=== PATIENT | female | born 1985 | race Two or more races ===

== ENCOUNTER → 2017-08-24 | Emergency (ER) | payer OTHER ==
[~2017-08-24] VITALS: Ht 162.6 cm; Wt 99.8 kg
[~2017-08-24] MED LIST: AMPICILLIN TRI500 MG PO; CEFADROXIL500 MG PO; CHEST CONG100 MG/51 PO; CIPRO500 MG PO; CLARITIN-D1 TAB.SR1 PO; INTESTINEX1 CA1 PO; INTESTINEX1 CAP PO; LEVSIN/SL0.125 MG SL; OSEL75CA PO; PEPCID20 MG PO; PEPCID40 MG PO; PHENERGAN25 MG PO; PROTONIX40 MG PO; SINGULAIR 10MG10 MG PO; SYMBICORT 16010.2 GM IH; TUSSI PRES-B L120 M1 PO; ZITHROMAX TRI-500 MG PO; ZITHROMAX500 MG PO; ZOFRAN4 MG PO; ZYNCOF 20-400120 ML PO
== END | disposition home or self-care (01) ==
LOC: ER 19:15
DX: J06.9 Acute upper respiratory infection, unspecified (principal); J00 Acute nasopharyngitis [common cold]; M54.89 Other dorsalgia

== ENCOUNTER 2018-01-25 01:10 | Emergency (ER) | payer OTHER ==
[~2018-01-25] VITALS: Ht 162.6 cm; Wt 99.8 kg
[2018-01-25] MEDS ORDERED: KETO10TA2 PO (04:55)
[2018-01-25] MEDS ORDERED: AMOX1TAB5 PO (04:55)
[2018-01-25] MEDS ORDERED: MUPIROCIN22 GM TOP (04:55)
== END 2018-01-25 05:09 | disposition home or self-care (01) ==
LOC: ER 01:10
DX: L72.3 Sebaceous cyst (principal)

== ENCOUNTER 2018-02-17 00:23 | Emergency (ER) | payer OTHER ==
[~2018-02-17] VITALS: Ht 162.6 cm; Wt 99.8 kg
[~2018-02-17 00:23] MED LIST changes: +AMOX1TAB5 PO; +KETO10TA2 PO; +MUPIROCIN22 GM TOP
[2018-02-17] MEDS ORDERED: CLINDAMYCIN HC300 MG PO (04:15)
[2018-02-17] MEDS ORDERED: KETO10TA2 PO (04:15)
[2018-02-17] MEDS ORDERED: INTESTINEX680 M1 PO (04:15)
== END 2018-02-17 04:39 | disposition home or self-care (01) ==
LOC: ER 00:23
DX: L72.3 Sebaceous cyst (principal)

== ENCOUNTER 2018-06-21 23:50 | Emergency (ER) | payer OTHER ==
[~2018-06-21] VITALS: Ht 162.6 cm; Wt 99.8 kg
[~2018-06-21 23:50] MED LIST changes: +CLINDAMYCIN HC300 MG PO; +INTESTINEX680 M1 PO
[2018-06-22] MEDS ORDERED: ORPHENADRINE C100 MG PO (03:33)
[2018-06-22] MEDS ORDERED: KETO10TA2 PO (03:33)
== END 2018-06-22 04:06 ==
LOC: ER 23:50
DX: G44.209 Tension-type headache, unspecified, not intractable (principal); M62.838 Other muscle spasm

== ENCOUNTER 2024-11-25 01:55 | Emergency (ER) | payer OTHER ==
[~2024-11-25] VITALS: Ht 162.6 cm; Wt 81.6 kg
[~2024-11-25 01:55] MED LIST changes: +ORPHENADRINE C100 MG PO
[2024-11-25] MEDS ORDERED: CIPROFLOXACIN IN 5 % DEXTROSE 400 MG/200 ML PIGGYBAG IV STA (04:00)
[2024-11-25] MEDS ORDERED: KETOROLAC TROMETHAMINE 30 MG VIAL IV STA (04:00)
[2024-11-25] MEDS ORDERED: KETOROLAC TROMETHAMINE 30 MG VIAL ONE (04:06)
[2024-11-25] MEDS ORDERED: CIPROFLOXACIN IN 5 % DEXTROSE 400 MG/200 ML PIGGYBAG IV ONE (04:07)
[2024-11-25 07:38] LABS: URINE APPEARANCE Turbid; URINE BILIRRUBIN Negative (NEGATIVE); URINE BLOOD Trace; URINE COLOR Yellow; URINE KETONE Trace (NEGATIVE); URINE LEUKOCYTE Moderate; URINE NITRATE Negative; URINE PROTEIN 30 (NEGATIVE)
[2024-11-25 07:39] LABS: URINE BACTERIA 3051.2 uL (0.0-1933); URINE RBC 3.6 uL (0.0-20.8); URINE WBC 1282.9 uL (0.0-23.2)
[2024-11-25 08:18] LABS: URINE CAST 0.44 uL (0.0-1.40); URINE GLUCOSE 500 MG/DL (NEGATIVE)
== END 2024-11-25 06:23 | disposition home or self-care (01) ==
LOC: ER 01:56
DX: R30.0 Dysuria (principal)